=== PATIENT | male | born 1985 | race Caucasian/White ===

== ENCOUNTER 2019-11-18 14:53 | Emergency (ER) | payer OTHER ==
[~2019-11-18] VITALS: Ht 193 cm; Wt 108.0 kg
--- NOTE | 2019-11-18 15:10 | ED GU-Male ---
General Chief Complaint: Male Reproductive Stated Complaint: LUMP ON TESTICAL Source: patient Exam Limitations: no limitations History of Present Illness Date Seen by Provider: Nov 18, 2019 Time Seen by Provider: 15:10 Initial Comments And every 10 or 15 minutes he'll have an intense pain in the right testicle. He does report some pain upon urination. No fevers chills or injury. History of vasectomy earlier this year by Dr. Alexander. Timing/Duration: constant Severity/Quality: moderate Location: scrotal Radiation: none Activities at Onset: none Prior Genitourinary Problems: none Associated Symptoms: denies symptoms Allergies and Home Medications Allergies Coded Allergies: No Known Drug Allergies (Verified Allergy, Unknown, 02/11/07) Patient Home Medication List Home Medication List Reviewed: Yes Review of Systems Review of Systems Constitutional: see HPI EENTM: see HPI Respiratory: no symptoms reported Cardiovascular: no symptoms reported Genitourinary: no symptoms reported Musculoskeletal: no symptoms reported Skin: no symptoms reported Psychiatric/Neurological: No Symptoms Reported Endocrine: No Symptoms Reported Hematologic/Lymphatic: No Symptoms Reported Past Nvmiwgf-Zhscjz-Vcddbd Hx Patient Social History Recent Foreign Travel: No Contact w/Someone Who Travel: No Physical Exam Vital Signs Vital Signs - First Documented 11/18/19 15:00 Temp 37.0 Pulse 82 Resp 16 B/P (MAP) 140/85 (103) Pulse Ox 97 O2 Delivery Room Air Capillary Refill : Height, Weight, BMI Height: '" Weight: lbs. oz. kg; BMI Method: General Appearance: WD/WN, no apparent distress Respiratory: normal breath sounds, no respiratory distress, no accessory muscle use Gastrointestinal: normal bowel sounds, non tender, soft Male: other (testes appear normal though the right one is slightly tender to palpation. Exam done with Elizabeth AARON at the bedside.) Extremities: normal range of motion, non-tender Neurologic/Psychiatric: alert, normal mood/affect, oriented x 3 Skin: normal color, warm/dry Progress/Results/Core Measures Suspected Sepsis SIRS Temperature: Pulse: Respiratory Rate: Blood Pressure / Mean: Results/Orders Lab Results Laboratory Tests Test 11/18/19 15:25 Range/Units My Orders Orders - TERELL LUKE APRN Us Scrotum (Testicle) [id number] (11/18/19 14:58) Ua Culture If Indicated (11/18/19 15:10) Vital Signs/I&O 11/18/19 15:00 Temp 37.0 Pulse 82 Resp 16 B/P (MAP) 140/85 (103) Pulse Ox 97 O2 Delivery Room Air Capillary Refill : Diagnostic Imaging Diagonstic Imaging: Xray Comments NAME: MARTHA REVELES [facility] REC#: [id number] PT STATUS: REG ER : 1985 PHYSICIAN: TERELL LUKE APRN ADMIT DATE: 11/18/19/ER Draft Date of Exam:11/18/19 US SCROTUM (Testicle) [id number] PROCEDURE: US Scrotum. TECHNIQUE: Multiple real-time grayscale images were obtained over the scrotum in various projections bilaterally. INDICATION: Testicular pain There are no prior studies available for comparison. Both testicles were identified. The right testicle measures 4.6 x 2.2 x 3.4 cm, the left testicle is estimated 4.0 x 2.3 x 3.0 cm. There is no evidence for a solid testicular mass or for torsion. There is no sign of epididymitis either although the tail of the left epididymis is somewhat heterogeneous. There is no hydrocele or varicocele formation. IMPRESSION: 1. There is no evidence for a solid testicular mass and there is no sign of torsion. 2. The tail of the epididymis on the left is somewhat heterogeneous but there is no hyperemia to suggest epididymitis. There is no evidence for epididymitis on the right either. Dictated on workstation # [id number] Dict: 11/18/19 1537 Trans: 11/18/19 1540 [facility] [id number] Interpreted by: JACKELYN MILES MD Electronically signed by: Departure Impression Primary Impression: Testicle tenderness Disposition: HOME, SELF-CARE Condition: Stable Departure-Patient Inst. Decision time for Depature: 15:12 Referrals: NO,LOCAL PHYSICIAN (PCP/Family) Primary Care Physician Patient Instructions: NO INSTRUCTIONS GIVEN Add. Discharge Instructions: 1. Call Dr. Alexander to make an appointment to be seen for follow-up 2. Wear supportive underwear that holds the scrotum close to the body and elevated. Return to ER for any concerns. All discharge instructions reviewed with patient and/or family. Voiced understanding. Copy Copies To 1: ZION ALEXANDER MD, PETER J APRN Nov 18, 2019 15:10
[2019-11-18 15:35] LABS: BILIRUBIN,URINE NEGATIVE (NEGATIVE); CLARITY,URINE CLEAR; COLOR,URINE YELLOW; GLUCOSE, URINE (UA) NEGATIVE (NEGATIVE); KETONES,URINE NEGATIVE (NEGATIVE); LEUKOCYTE ESTERASE ,URINE NEGATIVE (NEGATIVE); NITRITE,URINE NEGATIVE (NEGATIVE); PROTEIN,URINE NEGATIVE (NEGATIVE)
--- NOTE | 2019-11-18 15:40 | Diagnostic Imaging Report ---
PROCEDURE: US Scrotum. TECHNIQUE: Multiple real-time grayscale images were obtained over the scrotum in various projections bilaterally. INDICATION: Testicular pain There are no prior studies available for comparison. Both testicles were identified. The right testicle measures 4.6 x 2.2 x 3.4 cm, the left testicle is estimated 4.0 x 2.3 x 3.0 cm. There is no evidence for a solid testicular mass or for torsion. There is no sign of epididymitis either although the tail of the left epididymis is somewhat heterogeneous. There is no hydrocele or varicocele formation. IMPRESSION: 1. There is no evidence for a solid testicular mass and there is no sign of torsion. 2. The tail of the epididymis on the left is somewhat heterogeneous but there is no hyperemia to suggest epididymitis. There is no evidence for epididymitis on the right either. Dictated by: Dictated on workstation # [id number]
[2019-11-18 15:52] LABS: BACTERIA,URINE NEGATIVE /HPF
[2019-11-18 16:04] VITALS: BP 140/85
== END 2019-11-18 16:04 | disposition home or self-care (01) ==
LOC: EDUNIT# 14:53 → ER 14:57
DX: N50.811 Right testicular pain (principal)
CPT/HCPCS: 76870; 81000

== ENCOUNTER 2021-03-29 08:10 | Emergency (ER) | payer OTHER ==
[~2021-03-29] VITALS: Ht 190 cm; Wt 117.9 kg
--- NOTE | 2021-03-29 09:48 | Diagnostic Imaging Report ---
PROCEDURE: MR imaging of the brain without contrast. TECHNIQUE: Multiplanar, multisequence MR imaging of the brain was performed without contrast. INDICATION: Right weakness and paresthesia Ventricles and sulci are within normal limits for size. Scruggs-white matter signal intensities are unremarkable. There is no restricted diffusion to indicate an infarct. There is no abnormal mass effect or shift of midline structures. Mucous retention cyst or polyps are noted in the right maxillary sinus. IMPRESSION: Unremarkable MRI of the brain. Dictated by: Dictated on workstation # [id number]
--- NOTE | 2021-03-29 09:58 | Diagnostic Imaging Report ---
PROCEDURE: MR imaging cervical spine without contrast. TECHNIQUE: Multiplanar, multisequence MR imaging of the cervical spine was performed without contrast. INDICATION: Weakness, pain and numbness in the right arm. COMPARISON: None. FINDINGS: Mild reversal of normal cervical lordosis centered at C5-C6. Vertebral body heights preserved. Normal bone marrow signal. No abnormal signal in the cervical spinal cord. Visualized paravertebral soft tissues are unremarkable. C2-C3: Normal. C3-C4: Uncovertebral and facet arthropathy result in mild bilateral neural foraminal narrowing. No spinal canal narrowing. C4-C5: Uncovertebral joint hypertrophy results in moderate right and mild left neural foraminal narrowing. No spinal canal narrowing. C5-C6: Right paracentral disc extrusion results in severe right neural foraminal narrowing. Underlying broad-based disc bulging also results in moderate spinal canal stenosis and moderate left neural foraminal narrowing. C6-C7: Small central disc protrusion results in mild spinal canal narrowing. No neural foraminal narrowing. C7-T1: Normal. IMPRESSION: 1. Right paracentral disc extrusion and underlying broad-based disc bulging results in severe right neural foraminal narrowing, moderate left neural foraminal narrowing and moderate spinal canal stenosis at C5-C6. 2. Spondylotic changes also result in moderate right neural foraminal narrowing at C4-C5. 3. No abnormal signal in the cervical spinal cord. Dictated by: Dictated on workstation # [id number]
--- NOTE | 2021-03-29 10:26 | ED Neurological Problem ---
General Chief Complaint: Upper Extremity Stated Complaint: R SHOULDER PAIN Nursing Triage Note: pt presents to ed via pov from home with complaints of r shoulder pain x 3 weeks that has progressively gotten worse. reports he saw his dr friday and was prescribed flexeril, prednisone, and meloxicam. pt states when he woke up around 0230 he started having weakness, and numbness and increased pain in the r shoulder. 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 oz. kg; 32.00 BMI Method: Progress/Results/Core Measures Results/Orders My Orders Orders - ELIZABETH HARP MD Mri Brain W/O Contrast (03/29/21 08:49) Mri Cervical Spine W/O Contras (03/29/21 08:49) Vital Signs/I&O 03/29/21 08:20 Temp 36.6 Pulse 93 Resp 18 B/P (MAP) 163/95 (117) Pulse Ox 97 2 Blood Pressure Mean: 117 Departure Impression Primary Impression: Cervical spinal stenosis Additional Impressions: Neuroforaminal stenosis of cervical spine Right arm weakness Right arm pain Bulging disc Disposition: HOME, SELF-CARE Condition: Improved Departure-Patient Inst. Decision time for Depature: 10:23 Referrals: JANETTE MASON MD (PCP/Family) Primary Care Physician Patient Instructions: Spinal Stenosis Add. Discharge Instructions: Your symptoms are caused by disc bulging and narrowing (stenosis) of the spinal canal in your neck as well as impingement of the nerve roots exiting the spine. You need referral to a spine surgeon. Dr. Crouch at [facility] will be reviewing your MRI today and will provide further instructions. Await call from the [place] [facility]. You will either be directed to the [place] [facility] or referred to the neurosurgery clinic next week. You may take Tylenol (acetaminophen) up to 1000 mg every 6 hours as needed and/or ibuprofen up to 600 mg every 6 hours as needed for pain. You may continue the muscle relaxer and steroids previously prescribed. Call with questions or concerns. Return to the ER if you are having worsening symptoms. Consider presenting to the emergency room at [facility] or [facility] in [place] where neurosurgical services are available. All discharge instructions reviewed with patient and/or family. Voiced understanding. Copy Copies To 1: JANETTE MASON MD, JOSHUA T MD Mar 29, 2021 10:26
[2021-03-29 10:30] VITALS: BP 160/87
== END 2021-03-29 10:30 | disposition home or self-care (01) ==
LOC: EDUNIT# 08:10 → ER 08:12
DX: M48.02 Spinal stenosis, cervical region (principal); R53.1 Weakness; M79.601 Pain in right arm
CPT/HCPCS: 70551; 72141

== ENCOUNTER → 2021-09-11 | Outpatient (CLI) | payer OTHER ==
[2021-09-11 10:16] LABS: HEMATOCRIT 43 % (40-54); MEAN CORPUSCULAR HEMOGLOBIN 31 pg (25-34); MEAN CORPUSCULAR HGB CONC 35 g/dL (32-36); MEAN CORPUSCULAR VOLUME 90 fL (80-99); MEAN PLATELET VOLUME 10.8 fL (9.0-12.2); PLATELET COUNT 259 10^3/uL (130-400); WHITE BLOOD COUNT 5.7 10^3/uL (4.3-11.0)
[2021-09-11 10:38] LABS: ALBUMIN 4.5 GM/DL (3.2-4.5); BILIRUBIN,TOTAL 0.6 MG/DL (0.1-1.0); CALCIUM 9.2 MG/DL (8.5-10.1); CREATININE SERUM 0.91 MG/DL (0.60-1.30); POTASSIUM 4.3 MMOL/L (3.6-5.0); TOTAL PROTEIN 7.4 GM/DL (6.4-8.2)
== END ==
LOC: LAB 09:26
PROVIDERS: ATTEND Internal Medicine
DX: Z00.00 Encounter for general adult medical examination without abnormal findings (principal); E78.2 Mixed hyperlipidemia
CPT/HCPCS: 36415; 80053; 80061; 84443; 85027